=== PATIENT | male | born 2000 | race Caucasian/White ===

== ENCOUNTER 2020-05-24 12:31 | Emergency (ER) | payer MEDICAID, OTHER ==
[~2020-05-24] VITALS: Ht 185.4 cm; Wt 68.2 kg
[2020-05-24 13:11] VITALS: BP 125/84
[2020-05-24] MEDS ORDERED: IBUP-1984 PO (13:19)
[2020-05-24] MEDS ORDERED: PENI500T2 PO (13:19)
== END 2020-05-24 13:25 | disposition home or self-care (01) ==
LOC: ER 12:32
DX: K02.9 Dental caries, unspecified (principal); F12.90 Cannabis use, unspecified, uncomplicated; F17.210 Nicotine dependence, cigarettes, uncomplicated; Z91.013 Allergy to seafood; Z79.899 Other long term (current) drug therapy
CPT/HCPCS: 99283

== ENCOUNTER 2020-11-16 16:13 | Emergency (ER) | payer MEDICAID, OTHER ==
[~2020-11-16] VITALS: Ht 188 cm; Wt 65.9 kg
[2020-11-16 16:13] VITALS: BP 133/91
[2020-11-16] MEDS ORDERED: LIDOcaine 1% W/epiNEPHrine 1:200,000 10ml vial IJ ONE (16:30)
[2020-11-16] MEDS ORDERED: TETanus/Pertussis (Acell)/Diphther VAC/PF (Tdap-Adult) 0.5ml syringe IMVAC ONE (16:30)
== END 2020-11-16 19:09 | disposition home or self-care (01) ==
LOC: ER 16:13
DX: S81.811A Laceration without foreign body, right lower leg, initial encounter (principal); F17.200 Nicotine dependence, unspecified, uncomplicated; F12.90 Cannabis use, unspecified, uncomplicated; F15.90 Other stimulant use, unspecified, uncomplicated; Z86.14 Personal history of Methicillin resistant Staphylococcus aureus infection; Z91.013 Allergy to seafood; W54.0XXA Bitten by dog, initial encounter; Y93.89 Activity, other specified; Y92.89 Other specified places as the place of occurrence of the external cause; Y99.8 Other external cause status
CPT/HCPCS: 12032; 90471; 90715; 99284

== ENCOUNTER 2020-12-01 15:47 | Emergency (ER) | payer MEDICAID ==
[~2020-12-01] VITALS: Ht 188 cm; Wt 68.2 kg
[2020-12-01 16:18] VITALS: BP 113/62
== END 2020-12-01 16:22 | disposition home or self-care (01) ==
LOC: ER 15:47
DX: S81.812D Laceration without foreign body, left lower leg, subsequent encounter (principal); F12.90 Cannabis use, unspecified, uncomplicated; F15.90 Other stimulant use, unspecified, uncomplicated; Z48.02 Encounter for removal of sutures; Z86.14 Personal history of Methicillin resistant Staphylococcus aureus infection; Z98.890 Other specified postprocedural states; Z91.013 Allergy to seafood; W54.0XXD Bitten by dog, subsequent encounter
CPT/HCPCS: 99281

== ENCOUNTER 2023-12-02 09:23 | Emergency (ER) | payer MEDICAID ==
[~2023-12-02] VITALS: Ht 172.7 cm; Wt 65.0 kg
[2023-12-02 09:33] VITALS: BP 140/97; PULSE 97; RESP 18; TEMP 97.5; O2SAT 98
[2023-12-02] MEDS ORDERED: NAPR-56 PO (09:42)
[2023-12-02] MEDS ORDERED: SULF1TAB49 PO (09:42)
== END 2023-12-02 09:45 | disposition home or self-care (01) ==
LOC: ER 09:23
DX: J34.0 Abscess, furuncle and carbuncle of nose (principal); F12.10 Cannabis abuse, uncomplicated; F15.10 Other stimulant abuse, uncomplicated; Z91.013 Allergy to seafood; Z86.14 Personal history of Methicillin resistant Staphylococcus aureus infection
CPT/HCPCS: 99282